=== PATIENT | female | born 1975 | race Caucasian/White ===

== ENCOUNTER 2018-03-17 12:16 | Observation (INO) | payer MEDICARE, MEDICAID ==
[~2018-03-17] VITALS: Ht 165.1 cm; Wt 99.6 kg
[~2018-03-17 12:16] MED LIST: CARAFATE 1GM1 G PO; ESTRACE 1MG1 MG/TAB PO; LAMICTAL ODT200 MG MM; LEXAPRO20 MG PO; MULTIVITAMIN FO1 CAP PO; PROTONIX 40MG T40 MG PO; REGLAN 10MG10 MG/TAB PO; SEROQUEL 200MG200 MG PO; VITAMIN D32000 I1 PO; [UNRECOGNIZED DRUG - OTHER] VG
[2018-03-17 12:42] LABS: BASO % 0.4 % (0.0-2.0); EOS # 0.1 (0.0-0.7); EOS % 1.5 % (0-4.0); GRAN % 55.4 % (42.2-75.2); HEMOGLOBIN 11.8 g/dl (12.5-16.0); LYMPH # 1.9 (1.2-3.4); LYMPH % 34.4 % (20.0-51.0); MEAN CELL VOLUME 97 fl (80.0-100.0); MEAN CORPUSCULAR HEMOGLOBIN 32 pg (27.0-31.0); MEAN CORPUSCULAR HGB CONC 33 g/dl (33.0-37.0); MEAN PLATELET VOLUME 9.2 fl (7.4-10.4); MONO # 0.4 (0.1-0.6); MONO % 8.1 % (1.7-9.3); PLATELET COUNT 219 K/mm3 (130-400); RED BLOOD COUNT 3.64 M/mm3 (4.10-5.30); REDCELL DISTRIBUTION WIDTH-CV 12.2 % (11.5-14.5)
[2018-03-17 12:44] LABS: HEMATOCRIT 35.3 % (37.0-47.0)
[2018-03-17 12:47] LABS: PROTHROMBIN TIME 10.9 SECONDS (9.7-12.8)
[2018-03-17 12:50] LABS: PARTIAL THROMBOPLASTIN TIME 29.2 SECONDS (26.0-37.0)
[2018-03-17] MEDS ORDERED: SYNTHROID 0.0.025 MG PO (12:55)
[2018-03-17] MEDS ORDERED: XANAX 1MG1 MG PO (12:55)
[2018-03-17] MEDS ORDERED: DEPAKOTE500 MG PO (12:56)
[2018-03-17] MEDS ORDERED: NEURONTIN300 MG/CAP PO (12:56)
[2018-03-17] MEDS ORDERED: PROZAC40 MG PO (12:57)
[2018-03-17] MEDS ORDERED: KEPPRA 500MG500 MG PO (12:57)
[2018-03-17 12:58] LABS: ALANINE AMINOTRANSFERASE 30 U/L (9-52); ALBUMIN 3.6 gm/dL (3.5-5.0); ALKALINE PHOSPHATASE 55 U/L (50-136); ANION GAP 9 mmol/L (7-16); AST,SGOT 17 U/L (15-37); BILIRUBIN,TOTAL 0.4 mg/dL (0.0-1.0); BLOOD UREA NITROGEN 9 mg/dL (7-17); CALCIUM 8.7 mg/dL (8.4-10.2); CARBON DIOXIDE 27 mmol/L (22-30); CHLORIDE 102 mmol/L (98-107); CREATININE, serum 0.57 mg/dL (0.52-1.25); GLUCOSE 98 mg/dL (74-106); MAGNESIUM 2.1 mg/dL (1.6-2.3); PHOSPHOROUS 4.3 mg/dL (2.5-4.5); POTASSIUM 4.3 mmol/L (3.4-5.0); SODIUM 138 mmol/L (137-145)
[2018-03-17] MEDS ORDERED: PROZAC 20MG20 MG PO (12:58)
[2018-03-17] MEDS ORDERED: MELATONIN1 MG PO (13:00)
[2018-03-17] MEDS ORDERED: COLACE 100100 MG/CAP PO (13:00)
[2018-03-17] MEDS ORDERED: TYLENOL PM EXTR1 TA1 PO (13:00)
[2018-03-17] MEDS ORDERED: ALEVE 220MG220 MG PO (13:00)
[2018-03-17 13:13] LABS: TROPONIN-I < 0.012 ng/mL (0.000-0.034)
[2018-03-17 13:16] LABS: ARTERIAL BLD GAS TCO2 CT 29.1; ARTERIAL BLOOD GAS BASE EXCESS 2.6 (-2-2); ARTERIAL BLOOD GAS HCO3 27.7 meq/L (22-26); ARTERIAL BLOOD GAS PCO2 44.8 mmHg (35-45); ARTERIAL BLOOD GAS pH 7.41 (7.35-7.45)
[2018-03-17 13:17] LABS: ARTERIAL BLOOD GAS PO2 122.2 mmHg (80-100)
[2018-03-17 13:19] LABS: VALPROIC ACID (DEPAKENE) 38.6 ug/mL (50.0-100.0)
[2018-03-17 13:24] LABS: PROLACTIN 11.6 ng/mL (3.0-18.6)
[2018-03-17 13:43] LABS: COLLECTION METHOD CATHETER
[2018-03-17] MEDS ORDERED: ATIVAN 0.50.5 MG/TAB PO (13:52)
[2018-03-17 14:05] LABS: PH 7 (5-8); SQUAMOUS EPITHELIAL None Seen /hpf; URINE APPEARANCE Clear; URINE BACTERIA None Seen /hpf; URINE BILIRUBIN Negative (NEGATIVE); URINE BLOOD Negative (NEGATIVE); URINE COLOR Straw; URINE GLUCOSE Negative (NEGATIVE); URINE KETONE Negative (NEGATIVE); URINE LEUKOCYTE ESTERASE Negative (NEGATIVE); URINE NITRATE Negative (NEGATIVE); URINE PROTEIN(semi-quant) Negative (NEGATIVE); URINE RBC 0-2 /hpf; URINE UROBILINOGEN Negative (NEGATIVE)
[2018-03-17 14:09] LABS: TRICYCLIC ANTIDEPRESS URINE NEGATIVE
[2018-03-17] MEDS ORDERED: PHENERGAN 25 TA25 MG PO (17:48)
[2018-03-17] MEDS ORDERED: LIORESAL 1010 MG/TAB PO (17:50)
[2018-03-17] MEDS ORDERED: ZOFRAN8 MG PO (17:50)
[2018-03-17] MEDS ORDERED: DESYREL 100MG100 MG PO (17:50)
[2018-03-17 19:19] VITALS: BP 90/47; PULSE 64; TEMP 98.3
[2018-03-17 23:21] VITALS: BP 96/60; PULSE 59; TEMP 98
[2018-03-18] VITALS (8 sets, daily range): BP systolic 78–108; BP diastolic 46–60; PULSE 52–74; TEMP 97.4–98.8
[2018-03-18] MEDS ORDERED: NORCO 325 MG-7.1 TAB PO (10:21)
[2018-03-18 10:39] LABS: AMYLASE 43 U/L (30-110); LIPASE 44 U/L (23-300)
[2018-03-19] VITALS: BP 82/52; PULSE 63; TEMP 97.8
[2018-03-19 03:43] VITALS: BP 73/54; PULSE 70; TEMP 98
[2018-03-19 07:52] VITALS: BP 113/56; PULSE 77; TEMP 98
[2018-03-19 12:13] VITALS: BP 103/53; PULSE 80; TEMP 98.2
[2018-03-19] MEDS ORDERED: DEPAKOTE500 MG PO (14:57)
== END 2018-03-19 15:10 | disposition home or self-care (01) ==
LOC: COL.ER 12:16 → MEDICAL 17:03
PROVIDERS: Emergency Medicine; Physician Assistant
DX: R53.1 Weakness (principal); G89.29 Other chronic pain; G40.909 Epilepsy, unspecified, not intractable, without status epilepticus; M79.7 Fibromyalgia; M06.9 Rheumatoid arthritis, unspecified; I95.9 Hypotension, unspecified; E66.01 Morbid (severe) obesity due to excess calories; E03.9 Hypothyroidism, unspecified; J44.9 Chronic obstructive pulmonary disease, unspecified; R09.02 Hypoxemia; G43.909 Migraine, unspecified, not intractable, without status migrainosus; F17.210 Nicotine dependence, cigarettes, uncomplicated; H53.149 Visual discomfort, unspecified; F41.9 Anxiety disorder, unspecified; F31.9 Bipolar disorder, unspecified; G47.33 Obstructive sleep apnea (adult) (pediatric); R41.82 Altered mental status, unspecified; Z79.899 Other long term (current) drug therapy; Z90.710 Acquired absence of both cervix and uterus; Z90.721 Acquired absence of ovaries, unilateral; Z85.43 Personal history of malignant neoplasm of ovary; Z98.84 Bariatric surgery status; Z82.49 Family history of ischemic heart disease and other diseases of the circulatory system; Z91.040 Latex allergy status; Z88.8 Allergy status to other drugs, medicaments and biological substances; Z90.49 Acquired absence of other specified parts of digestive tract
CPT/HCPCS: 99239; A9585; G0378; G8978-GP; G8979-GP; G8987-GO; G8988-GO; J1650; J2405; J3010; J7030

== ENCOUNTER → 2018-04-09 | Outpatient (CLI) | payer MEDICARE, MEDICAID ==
[~2018-04-09] MED LIST changes: +ALEVE 220MG220 MG PO; +ATIVAN 0.50.5 MG/TAB PO; +COLACE 100100 MG/CAP PO; +DEPAKOTE500 MG PO; +DESYREL 100MG100 MG PO; +KEPPRA 500MG500 MG PO; +LIORESAL 1010 MG/TAB PO; +MELATONIN1 MG PO; +NEURONTIN300 MG/CAP PO; +NORCO 325 MG-7.1 TAB PO; +PHENERGAN 25 TA25 MG PO; +PROZAC 20MG20 MG PO; +PROZAC40 MG PO; +SYNTHROID 0.0.025 MG PO; +TYLENOL PM EXTR1 TA1 PO; +XANAX 1MG1 MG PO; +ZOFRAN8 MG PO
== END ==
LOC: COL.RAD 07:14
DX: M50.322 Other cervical disc degeneration at C5-C6 level (principal); M79.662 Pain in left lower leg; R22.42 Localized swelling, mass and lump, left lower limb

== ENCOUNTER 2018-07-05 11:58 | Emergency (ER) | payer MEDICARE, MEDICAID ==
[~2018-07-05] VITALS: Ht 165.1 cm; Wt 100.0 kg
[~2018-07-05 11:58] MED LIST changes: +BENADRYL25 M2 PO; +BUTALB-ACETAMIN-CAFF PO; +FLEXERIL 1010 MG/TAB PO; +NORCO 325 MG-101 TAB PO; +REQUIP 1MG T1 MG/TAB PO; +REQUIP0.25 MG PO
[2018-07-05 11:59] VITALS: TEMP 98.1
[2018-07-05 13:15] LABS: ALANINE AMINOTRANSFERASE 25 U/L (9-52); ALBUMIN 3.4 gm/dL (3.5-5.0); ALKALINE PHOSPHATASE 55 U/L (50-136); ANION GAP 5 mmol/L (7-16); AST,SGOT 39 U/L (15-37); BILIRUBIN,TOTAL 0.2 mg/dL (0.0-1.0); BLOOD UREA NITROGEN 11 mg/dL (7-17); CALCIUM 8.3 mg/dL (8.4-10.2); CARBON DIOXIDE 29 mmol/L (22-30); CHLORIDE 107 mmol/L (98-107); CREATININE, serum 0.61 mg/dL (0.52-1.25); GLUCOSE 91 mg/dL (74-106); POTASSIUM 4.6 mmol/L (3.4-5.0); SODIUM 140 mmol/L (137-145); TOTAL PROTEIN 5.9 gm/dL (6.4-8.2)
[2018-07-05 13:16] LABS: BASO % 0.4 % (0.0-2.0); EOS # 0.1 (0.0-0.7); EOS % 1.3 % (0-4.0); GRAN # 2.9 (1.4-6.5); GRAN % 53.6 % (42.2-75.2); LYMPH # 1.6 (1.2-3.4); LYMPH % 30.7 % (20.0-51.0); MEAN CELL VOLUME 93 fl (80.0-100.0); MEAN CORPUSCULAR HGB CONC 32 g/dl (33.0-37.0); MEAN PLATELET VOLUME 9.1 fl (7.4-10.4); MONO # 0.7 (0.1-0.6); MONO % 13.6 % (1.7-9.3); PLATELET COUNT 220 K/mm3 (130-400); RED BLOOD COUNT 3.29 M/mm3 (4.10-5.30); REDCELL DISTRIBUTION WIDTH-CV 13.3 % (11.5-14.5)
[2018-07-05 13:17] LABS: PROTHROMBIN TIME 11.4 SECONDS (9.7-12.8)
[2018-07-05 13:20] LABS: HEMATOCRIT 30.5 % (37.0-47.0); HEMOGLOBIN 9.6 g/dl (12.5-16.0); MEAN CORPUSCULAR HEMOGLOBIN 29 pg (27.0-31.0)
[2018-07-05 13:26] LABS: TROPONIN-I < 0.012 ng/mL (0.000-0.034)
[2018-07-05 17:42] VITALS: BP 125/62; PULSE 78
== END 2018-07-05 17:43 | disposition home or self-care (01) ==
LOC: COL.ER 11:58
PROVIDERS: Emergency Medicine
DX: R07.9 Chest pain, unspecified (principal); R53.1 Weakness; G40.909 Epilepsy, unspecified, not intractable, without status epilepticus; F31.9 Bipolar disorder, unspecified; G43.909 Migraine, unspecified, not intractable, without status migrainosus; K21.9 Gastro-esophageal reflux disease without esophagitis; E03.9 Hypothyroidism, unspecified; Z86.73 Personal history of transient ischemic attack (TIA), and cerebral infarction without residual deficits; Z85.43 Personal history of malignant neoplasm of ovary; Z87.19 Personal history of other diseases of the digestive system; Z87.11 Personal history of peptic ulcer disease; Z90.49 Acquired absence of other specified parts of digestive tract; Z90.710 Acquired absence of both cervix and uterus; Z98.84 Bariatric surgery status
CPT/HCPCS: C9113; J2270; J2550; J7030

== ENCOUNTER 2018-09-26 12:57 | Emergency (ER) | payer MEDICARE, MEDICAID | END 2018-09-26 18:24 | disposition home or self-care (01) | LOC: COL.ER 12:57 | DX: R07.89 Other chest pain (principal); R10.10 Upper abdominal pain, unspecified; L03.90 Cellulitis, unspecified; G40.909 Epilepsy, unspecified, not intractable, without status epilepticus; M79.7 Fibromyalgia; M06.9 Rheumatoid arthritis, unspecified; Z90.710 Acquired absence of both cervix and uterus; Z87.891 Personal history of nicotine dependence ==

== ENCOUNTER 2019-01-12 17:35 | Emergency (ER) | payer MEDICARE, MEDICAID ==
[~2019-01-12] VITALS: Ht 170.2 cm; Wt 86.4 kg
[~2019-01-12 17:35] MED LIST changes: +AMOXICILLIN 8751 TAB PO; +DOXYCYCLINE 10100 MG PO; +ULTRAM 50MG TAB50 MG PO; +ZOFRAN ODT4 MG PO
[2019-01-12 17:39] VITALS: TEMP 98.7
[2019-01-12 19:37] VITALS: BP 109/76; PULSE 88
== END 2019-01-12 19:37 | disposition home or self-care (01) ==
LOC: COL.ER 17:35
DX: S01.91XA Laceration without foreign body of unspecified part of head, initial encounter (principal); G43.909 Migraine, unspecified, not intractable, without status migrainosus; J44.9 Chronic obstructive pulmonary disease, unspecified; W19.XXXA Unspecified fall, initial encounter; W22.8XXA Striking against or struck by other objects, initial encounter; Y92.481 Parking lot as the place of occurrence of the external cause
CPT/HCPCS: J1170; J2550

== ENCOUNTER 2019-01-21 12:17 | Emergency (ER) | payer MEDICARE, MEDICAID | END 2019-01-21 13:35 | disposition home or self-care (01) | LOC: COL.ER 12:17 | DX: S01.01XD Laceration without foreign body of scalp, subsequent encounter (principal); X58.XXXD Exposure to other specified factors, subsequent encounter ==

== ENCOUNTER → 2019-02-11 | Emergency (ER) | payer MEDICARE, MEDICAID ==
[2019-02-11 13:38] VITALS: TEMP 98.3
[2019-02-11 14:43] LABS: COLLECTION METHOD CLEAN CATCH
[2019-02-11 14:45] LABS: BASO % 0.4 % (0.0-2.0); EOS # 0.1 (0.0-0.7); EOS % 1.1 % (0-4.0); GRAN # 2.8 (1.4-6.5); GRAN % 51.7 % (42.2-75.2); HEMATOCRIT 37.4 % (37.0-47.0); HEMOGLOBIN 12.3 g/dl (12.5-16.0); LYMPH # 2.1 (1.2-3.4); MEAN CELL VOLUME 94 fl (80.0-100.0); MEAN CORPUSCULAR HEMOGLOBIN 31 pg (27.0-31.0); MEAN CORPUSCULAR HGB CONC 33 g/dl (33.0-37.0); MONO # 0.5 (0.1-0.6); MONO % 8.6 % (1.7-9.3); PLATELET COUNT 197 K/mm3 (130-400); REDCELL DISTRIBUTION WIDTH-CV 16.1 % (11.5-14.5)
[2019-02-11 14:52] LABS: PH 7 (5-8); SQUAMOUS EPITHELIAL 0-2 /hpf; URINE APPEARANCE Clear; URINE BACTERIA None Seen /hpf; URINE BILIRUBIN Negative (NEGATIVE); URINE BLOOD Negative (NEGATIVE); URINE COLOR Yellow; URINE GLUCOSE Negative (NEGATIVE); URINE KETONE Negative (NEGATIVE); URINE LEUKOCYTE ESTERASE Negative (NEGATIVE); URINE NITRATE Negative (NEGATIVE); URINE PROTEIN(semi-quant) Negative (NEGATIVE); URINE RBC 0-2 /hpf; URINE UROBILINOGEN Negative (NEGATIVE)
[2019-02-11 14:57] LABS: ALANINE AMINOTRANSFERASE 33 U/L (9-52); ALBUMIN 3.7 gm/dL (3.5-5.0); ALKALINE PHOSPHATASE 78 U/L (50-136); ANION GAP 8 mmol/L (7-16); AST,SGOT 33 U/L (15-37); BILIRUBIN,TOTAL 0.4 mg/dL (0.0-1.0); BLOOD UREA NITROGEN 9 mg/dL (7-17); CALCIUM 9.2 mg/dL (8.4-10.2); CARBON DIOXIDE 27 mmol/L (22-30); CHLORIDE 106 mmol/L (98-107); CREATININE, serum 0.61 (0.52-1.25); GLUCOSE 82 mg/dL (74-106); POTASSIUM 4.3 mmol/L (3.4-5.0); SODIUM 140 mmol/L (137-145); TOTAL PROTEIN 6.3 gm/dL (6.4-8.2)
[2019-02-11 14:58] LABS: ACETAMINOPHEN < 10 ug/mL (10-30); ALCOHOL(ethanol),MEDICAL < 10 mg/dL; SALICYLATE < 1.0 mg/dL
[2019-02-11 14:59] LABS: TRICYCLIC ANTIDEPRESS URINE NEGATIVE
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
[2019-02-11 17:23] VITALS: BP 132/91; PULSE 112
--- NOTE | 2019-02-14 08:27 | NUR ---
JOHANNA Sotelo, contacted worker and obtained details about patient's emergency room visit as there is an open case now.
== END ==
LOC: COL.ER 13:30
PROVIDERS: Physician Assistant
DX: F32.9 Major depressive disorder, single episode, unspecified (principal)

== ENCOUNTER 2019-10-03 10:33 | Emergency (ER) | payer MEDICARE, MEDICAID ==
[~2019-10-03] VITALS: Ht 170.2 cm; Wt 90.0 kg
[2019-10-03 10:38] VITALS: TEMP 97
[2019-10-03 11:49] VITALS: BP 95/72; PULSE 73
== END 2019-10-03 11:50 | disposition home or self-care (01) ==
LOC: COL.ER 10:33
DX: S60.212A Contusion of left wrist, initial encounter (principal); S50.12XA Contusion of left forearm, initial encounter; J44.9 Chronic obstructive pulmonary disease, unspecified; E11.9 Type 2 diabetes mellitus without complications; Z87.891 Personal history of nicotine dependence; W01.0XXA Fall on same level from slipping, tripping and stumbling without subsequent striking against object, initial encounter; Y92.002 Bathroom of unspecified non-institutional (private) residence as the place of occurrence of the external cause

== ENCOUNTER 2019-11-23 14:28 | Emergency (ER) | payer MEDICARE, MEDICAID ==
[~2019-11-23] VITALS: Ht 170.2 cm; Wt 95.5 kg
[2019-11-23 14:32] VITALS: BP 114/55; PULSE 91; TEMP 97.6
== END 2019-11-23 16:05 | disposition home or self-care (01) ==
LOC: COL.ER 14:28
DX: S93.402A Sprain of unspecified ligament of left ankle, initial encounter (principal); S93.602A Unspecified sprain of left foot, initial encounter; S90.32XA Contusion of left foot, initial encounter; S90.02XA Contusion of left ankle, initial encounter; G40.909 Epilepsy, unspecified, not intractable, without status epilepticus; G43.909 Migraine, unspecified, not intractable, without status migrainosus; E03.9 Hypothyroidism, unspecified; F31.9 Bipolar disorder, unspecified; W20.8XXA Other cause of strike by thrown, projected or falling object, initial encounter; Y92.009 Unspecified place in unspecified non-institutional (private) residence as the place of occurrence of the external cause